=== PATIENT | male | born 1965 | race Two or more races ===

== ENCOUNTER 2025-01-18 19:49 | Emergency (ER) | payer MEDICAID, OTHER ==
[~2025-01-18] VITALS: Ht 162.6 cm; Wt 81.8 kg
[2025-01-18 20:52] VITALS: BP 175/122; TEMP 99
[2025-01-18] MEDS ORDERED: COLC1CAP PO (21:02)
[2025-01-18] MEDS ORDERED: PRED20TA2 PO (21:02)
--- NOTE | 2025-01-18 21:02 | ED.PDOC ---
Back pain HPI HPI Comments Pt c/o left foot pain x3 days. Pt c/o pain, redness, and swelling to medial aspect of base of big toe. Pt reports hx gout many years ago. Patient denies any known injury. Notes his diet has not been great lately but does deny alcohol use. Rates pain 01/28, pt has taken Ibuprofen for pain without relief. Chief Complaint: Lower Extremity Time Seen by MD: 19:56 Primary Care Provider: DR FERNANDO Reviewed Notes: Nurses Notes, Medications, Allergies Allergies: Coded Allergies: NO KNOWN ALLERGIES (Unverified , 12/16/14) Home Meds Active Scripts Prednisone (Prednisone) 20 Mg Tab, 40 MG PO DAILY@BREAKFAST for 4 Days, #8 MG Prov:CARLOS EDUARDO HARVEY [employer] 01/18/25 Colchicine (Colchicine) 0.6 Mg Cap, 0.6 MG PO BID for 5 Days, #10 CAP Prov:CARLOS EDUARDO HARVEY [facility] 01/18/25 Information Source: Patient Mode of Arrival: Ambulatory Past Medical History PAST MEDICAL HISTORY: Denies Surgical History: Denies all surgeries Family History Family History: Unobtainable Social History Smoker: Non-Smoker Alcohol: Occasionally Drugs: Denies Drug Use Lives In: Home Constitutional: denies: chills, diaphoresis, fatigue, fever, malaise, sweats, weakness, others EENTM: denies: blurred vision, double vision, ear bleeding, ear discharge, ear drainage, ear pain, ear ringing, eye pain, eye redness, hearing loss, mouth makayla n, mouth swelling, nasal discharge, nose bleeding, nose congestion, nose pain, photophobia, tearing, throat pain, throat swelling, voice changes, others Respiratory: denies: cough, hemoptysis, orthopnea, SOB at rest, shortness of breath, SOB with excertion, stridor, wheezing, others Cardiovascular: denies: chest pain, dizzy spells, diaphoresis, Dyspnea on exertion, edema, irregular heart beat, left arm pain, lightheadedness, palpitations, PND, syncope, others Gastrointestinal: denies: abdomen distended, abdominal pain, blood streaked bowels, constipated, diarrhea, dysphagia, difficulty swallowing, hematemesis, melena, nausea, poor appetite, poor fluid intake, rectal bleeding, rectal pain, vomiting, others Genitourinary: denies: burning, dysuria, flank pain, frequency, hematuria, incontinence, penile discharge, penile sore, pain, testicle pain, testicle swelling, urgency, others Neurological: denies: dizziness, fainting, headache, left sided numbness, left sided weakness, numbness, paresthesia, pre-existing deficit, right sided numbness, right sided weakness, seizure, speech problems, tingling, tremors, weakness, others Musculoskeletal: reports: gout, joint pain, joint swelling; denies: back pain, muscle pain, muscle stiffness, neck pain, others Integumetry: denies: bruises, change in color, change in hair/nails, dryness, laceration, lesions, lumps, rash, wounds, others Allergic/Immunocompromised: denies: Difficulty Healing, Frequent Infections, Hives, Itching, others Hematologic/Lymphatic: denies: anemia, blood clots, easy bleeding, easy bruising, swollen glands, others Endocrine: denies: excessive hunger, excessive sweating, excessive thirst, excessive urination, flushing, intolerance to cold, intolerance to heat, unexplained weight gain, unexplained weight loss, others Psychiatric: denies: anxiety, bipolar disorder, depression, hopeless, panic disorder, schizophrenia, sleepless, suicidal, others Physical Exam General Appearance: No Apparent Distress, Normal HEENT: Pharynx Normal Neck: Full Range of Motion Respiratory: Lungs Clear, No Respiratory Distress, Normal Breath Sounds Cardiovascular: No Murmur, Normal Peripheral Pulses, Regular Rate/Rhythm Breast Exam: Deferred Gastrointestinal: Non Tender, Soft Genitalia: Deferred Pelvic: Deferred Rectal: Deferred Extremities: Normal capillary refill, Normal range of motion, No pedal edema Musculoskeletal : Location: Left Extremity Location: Great Toe (Moderate tenderness on palpation noted mild edema and erythema no noted streaking warmth to touch without any open lesions or excoriations cap refill less than 3 seconds strength sensory motion intact) Apperance: Normal Neurologic: Alert, head of stock II-XII nml as Tested, No Motor Deficits, Normal Affect, Normal Mood, No Sensory Deficits Cerebellar Function: Normal Reflexes: Normal Skin: Dry, Normal Color, Warm Lymphatic: No Adenopathy Was a procedure done? Was a procedure done?: No Back Pain Differential Dx Differential Diagnosis: Fracture, Musculoskeletal Pain X-Ray, Labs, Meds, VS Vital Signs Date Time Temp Pulse Resp B/P (MAP) Pulse Ox O2 Delivery O2 Flow Rate FiO2 01/18/25 21:14 81 16 96 Room Air 01/18/25 20:52 99.0 81 16 175/122 (139) 96 99.0 01/18/25 19:51 98.8 94 18 132/74 96 98.8 Current Medications Medications (Trade) Dose Ordered Sig/Martínez Route Start Time Stop Time Status Last Admin Ketorolac Tromethamine (Toradol Injection) 60 mg ONCE ONCE IM 01/18/25 21:00 01/18/25 21:01 DC 01/18/25 21:14 Dexamethasone Sodium Phosphate (Decadron Injection) 10 mg ONCE ONCE IM 01/18/25 21:00 01/18/25 21:01 DC 01/18/25 21:13 Colchicine (Colcrys) 1.2 mg ONCE ONCE PO 01/18/25 21:00 01/18/25 21:01 DC 01/18/25 21:13 X-Ray, Labs, Meds, VS Comment Patient given Toradol 60 mg IM and Decadron 10 mg IM and colchicine. Patient reports improvement in pain function requesting discharge at this time. Script trial of prednisone along with colchicine. Advised to take medications as prescribed side effects were discussed. Follow up with his PCP in 2-3 days. Discussed ER return precautions patient indicates understanding agrees with discharge plan of care. Time of 1ST Reevaluation: 19:58 Reevaluation 1ST: Unchanged Time of 2ND Reevaluation: 21:02 Reevaluation 2ND: Improved Patient Education/Counseling: Diagnosis, Treatment, Prognosis, Need For Follow Up Family Education/Counseling: No Family Present SEPSIS Sepsis Screen Date sepsis recognized/suspect: Jan 18, 2025 Time Sepsis recognized/suspect: 1954 Recent Procedure: No On Antibiotic Therapy: No Respiratory Rate >20: No Heart Rate >90: Yes Temp<36 C (96.8 F) or >38.3 C: No SBP <90 or MAP <65 mmHG: No New Acute Mental Status Change: No Is the patient on CPAP, BIPAP,: No Vital Signs Date Time Temp Pulse Resp B/P (MAP) Pulse Ox O2 Delivery O2 Flow Rate FiO2 01/18/25 21:14 81 16 96 Room Air 01/18/25 20:52 99.0 81 16 175/122 (139) 96 99.0 01/18/25 19:51 98.8 94 18 132/74 96 98.8 Medications Medications Dose Ordered Sig/Martínez Route Start Time Stop Time Status Last Admin Dose Admin Colchicine 1.2 mg ONCE ONCE PO 01/18/25 21:00 01/18/25 21:01 AR 01/18/25 21:13 Dexamethasone Sodium Phosphate 10 mg ONCE ONCE IM 01/18/25 21:00 01/18/25 21:01 DC 01/18/25 21:13 Ketorolac Tromethamine 60 mg ONCE ONCE IM 01/18/25 21:00 01/18/25 21:01 AR 01/18/25 21:14 Departure 1 Departure Time of Disposition: 20:58 Impression: Primary Impression: Gout Qualified Codes: M10.9 - Gout, unspecified Disposition: 01 HOME / SELF CARE / HOMELESS Condition: Stable e-Prescriptions Prednisone (Prednisone) 20 Mg Tab 40 MG PO DAILY@BREAKFAST for 4 Days, #8 MG Prov: CARLOS EDUARDO HARVEYP 01/18/25 Colchicine (Colchicine) 0.6 Mg Cap 0.6 MG PO BID for 5 Days, #10 CAP Prov: CARLOS EDUARDO HARVEY 01/18/25 Discharged With: Self Critical Care Note Critical Care Time?: No Stability Stability form required: No CARLOS EDUARDO HARVEY Jan 18, 2025 21:02
[2025-01-18] MEDS: COLCHICINE 0.6 MG CAP PO ONE (21:13)
[2025-01-18 21:14] VITALS: PULSE 81; RESP 16; O2SAT 96
[2025-01-18] MEDS: KETOROLAC TROMETH 60MG/2ML VIAL IM ONE (21:14)
== END 2025-01-18 21:59 | disposition home or self-care (01) ==
LOC: ER 19:49
DX: M10.9 Gout, unspecified (principal); M79.672 Pain in left foot
CPT/HCPCS: 96372; 99284; J1100; J1885